=== PATIENT | male | born 1955 | race Caucasian/White ===

== ENCOUNTER 2017-10-19 06:19 | Emergency (ER) | payer BC, SELFPAY ==
[2017-10-19 06:24] VITALS: BP 146/87; PULSE 68; RESP 18; TEMP 36.7; O2SAT 96; BMI 30.1
--- NOTE | 2017-10-19 07:27 | HMH.EDALLER ---
ED Disposition Clinical Impression: Angioedema Qualifiers: Encounter type: initial encounter Qualified Code(s): T78.3XXA - Angioneurotic edema, initial encounter Disposition: Home, Self-Care Condition on Discharge: Good Instructions: DI for Skin Abscess Additional Instructions: use meds as directed Prescriptions: predniSONE [Prednisone 20mg Tab] 20 mg PO DAILY #10 tab Referrals: Felix Newell MD [Primary Care Provider] - - Critical Care Critical Care Time: No Attestation: On 10/19/17, the high probability of a clinically significant, sudden or life threatening deterioration of the following system(s) required my full and direct attention, intervention and personal management. The time I documented below is in addition to time spent performing reported procedures but includes the following listed in this critical care notation. Medical Decision Making - Medical Records Medical records reviewed: Yes: I reviewed the patient's medical records. Vital Signs: 10/19/17 06:24 Temperature 98.1 F Temperature Source Oral Pulse Rate [Right] 68 Respiratory Rate 18 Blood Pressure [Right Arm] 146/87 Blood Pressure Mean [Right Arm] 106 02 Sat by Pulse Oximetry 96 Oxygen Delivery Method Room Air Orders (Tests/Meds): ED MEDICATIONS Discontinued Medications Generic Name Dose Route Start Last Admin Trade Name Freq PRN Reason Stop Dose Admin Diphenhydramine HCl 25 mg 10/19/17 06:37 10/19/17 06:40 Benadryl 50mg/1ml Vial IV 10/19/17 06:38 25 mg ONCE ONE Administration Famotidine 20 mg 10/19/17 06:38 10/19/17 06:40 Pepcid 20mg/2ml Vial IV 10/19/17 06:39 20 mg ONCE ONE Administration Methylprednisolone Sodium Succinate 125 mg 10/19/17 06:37 10/19/17 06:39 Solu-Medrol 125mg/2ml Vial IV 10/19/17 06:38 125 mg ONCE ONE Administration - Physician Consults Physician Consulted: princess Reason -: Pt condition - Tahir Inquiry Pt receiving controlled substance: No Allergic React/Insect Bite HPI - General Chief complaint: Allergic Reaction Stated complaint: Swollen tongue Time Seen by Provider: 10/19/17 07:28 Mode of Arrival - ED Triage: Ambulatory Source of Information: Patient, Spouse, Medical Record Limitations: No Limitations - History of Present Illness HPI narrative: acute onset this am of swollen tongue with no prev episode and ho hx of abilio inhib MD complaint: allergic reaction Onset (ago): hour(s) Exposure: unknown Symptoms: tongue swelling Treatment prior to arrival: none Allergies/Adverse Reactions: Allergies Allergy/AdvReac Type Severity Reaction Status Date / Time No Known Allergies Allergy Verified 10/19/17 06:34 Previous Allergic Reaction History: none Severity: moderate - Related Data Home Medications Medication Instructions Recorded Confirmed Omeprazole [Omeprazole 40mg 40 mg PO DAILY 10/19/17 10/19/17 Capsule] Previous Rx's Medication Instructions Recorded predniSONE [Prednisone 20mg 20 mg PO DAILY #10 tab 10/19/17 Tab] [facility] History I have reviewed the patient's past medical history: Yes Medical History: Denies:: Diabetes Mellitus Type 1, Diabetes Mellitus Type 2 Other Surgeries: No: Pacemaker - *Social History Alcohol Intake: current Alcohol Intake Frequency:: holidays/special occasions only - Psychiatric History Expresses thoughts of harming self/others: None Suicide Plan Description: No Plan ROS Obtained: Yes All systems reviewed & no additional complaints - Constitutional Constitutional: Denies fever(s) - Eyes Eyes: Denies loss of vision - ENT Ears, Nose, Mouth, and Throat: Reports as per HPI, Denies difficulty swallowing, Denies mouth lesions, Denies throat swelling - Cardiovascular Cardiovascular: Denies chest pain at rest - Respiratory Respiratory: No cough - Gastrointestinal Gastrointestingal: Denies: abdominal pain, black, tarry stools - Musculoskeletal M
--- NOTE | 2017-10-19 07:34 | ED_ITS ---
ED Disposition Clinical Impression: Angioedema Qualifiers: Encounter type: initial encounter Qualified Code(s): T78.3XXA - Angioneurotic edema, initial encounter Disposition: Home, Self-Care Condition on Discharge: Good Instructions: DI for Skin Abscess Additional Instructions: use meds as directed Prescriptions: predniSONE [Prednisone 20mg Tab] 20 mg PO DAILY #10 tab Referrals: Felix Newell MD [Primary Care Provider] - - Critical Care Critical Care Time: No Attestation: On 10/19/17, the high probability of a clinically significant, sudden or life threatening deterioration of the following system(s) required my full and direct attention, intervention and personal management. The time I documented below is in addition to time spent performing reported procedures but includes the following listed in this critical care notation. Medical Decision Making - Medical Records Medical records reviewed: Yes: I reviewed the patient's medical records. Vital Signs: 10/19/17 06:24 Temperature 98.1 F Temperature Source Oral Pulse Rate [Right] 68 Respiratory Rate 18 Blood Pressure [Right Arm] 146/87 Blood Pressure Mean [Right Arm] 106 02 Sat by Pulse Oximetry 96 Oxygen Delivery Method Room Air Orders (Tests/Meds): ED MEDICATIONS Discontinued Medications Generic Name Dose Route Start Last Admin Trade Name Freq PRN Reason Stop Dose Admin Diphenhydramine HCl 25 mg 10/19/17 06:37 10/19/17 06:40 Benadryl 50mg/1ml Vial IV 10/19/17 06:38 25 mg ONCE ONE Administration Famotidine 20 mg 10/19/17 06:38 10/19/17 06:40 Pepcid 20mg/2ml Vial IV 10/19/17 06:39 20 mg ONCE ONE Administration Methylprednisolone Sodium Succinate 125 mg 10/19/17 06:37 10/19/17 06:39 Solu-Medrol 125mg/2ml Vial IV 10/19/17 06:38 125 mg ONCE ONE Administration - Physician Consults Physician Consulted: princess Reason -: Pt condition - Tahir Inquiry Pt receiving controlled substance: No Allergic React/Insect Bite HPI - General Chief complaint: Allergic Reaction Stated complaint: Swollen tongue Time Seen by Provider: 10/19/17 07:28 Mode of Arrival - ED Triage: Ambulatory Source of Information: Patient, Spouse, Medical Record Limitations: No Limitations - History of Present Illness HPI narrative: acute onset this am of swollen tongue with no prev episode and ho hx of abilio inhib MD complaint: allergic reaction Onset (ago): hour(s) Exposure: unknown Symptoms: tongue swelling Treatment prior to arrival: none Allergies/Adverse Reactions: Allergies Allergy/AdvReac Type Severity Reaction Status Date / Time No Known Allergies Allergy Verified 10/19/17 06:34 Previous Allergic Reaction History: none Severity: moderate - Related Data Home Medications Medication Instructions Recorded Confirmed Omeprazole [Omeprazole 40mg 40 mg PO DAILY 10/19/17 10/19/17 Capsule] Previous Rx's Medication Instructions Recorded predniSONE [Prednisone 20mg 20 mg PO DAILY #10 tab 10/19/17 Tab] [facility] History I have reviewed the patient's past medical history: Yes Medical History: Denies:: Diabetes Mellitus Type 1, Diabetes Me
[2017-10-19 08:17] VITALS: BP 110/86; PULSE 68; RESP 18; O2SAT 98
== END 2017-10-19 08:24 | disposition home or self-care (01) ==
PROVIDERS: Emergency Provider Family Medicine; Family Provider Family Medicine; PCP Family Medicine
DX: T78.3XXA Angioneurotic edema, initial encounter (principal); Z79.899 Other long term (current) drug therapy
CPT/HCPCS: 96374; 96375; 99282

== ENCOUNTER 2017-10-21 11:20 | Day surgery (SDC) | payer BC, SELFPAY ==
[2017-10-17 15:04] VITALS: BMI 30.8
[2017-10-21] VITALS (7 sets, daily range): BP systolic 115–138; BP diastolic 75–92; PULSE 63–90; RESP 15–18; TEMP 36.3–36.7; O2SAT 93–98
--- NOTE | 2017-10-21 12:32 | P.PN_ITS ---
[facility] Anesthesia Checklist - Patient Identification Patient Identification: Arm Band, Verbal (Name & ) - Structural Data Admitted From: Home Planned Operative Procedure/s: egd Consent for Planned Operative Procedure(s) Verified: Yes Verified Documents: Surgical Consent - Cardiovascular Assessment Heart Sounds: S1 & S2 Pulse Strength: Strong Pulse Rhythm: Regular Peripheral Edema: No - Airway Assessment C-Spine Mobility Assessed: No TMJ Mobility Assessed: Yes Dentition: Good Dentition - Neurological Assessment Level of Consciousness: Awake, Alert, Appropriate Hx Seizures: No Numbness or tingling in extremities: No - Anesthesia Plan Anesthesia Risk discussed: Yes Anesthesia Plan: Verified ASA Class: II Anesthesia Type: MAC [facility] Anesthesia HX I have reviewed the patient's past medical history: Yes Medical History: Denies:: Diabetes Mellitus Type 1, Diabetes Mellitus Type 2, Seizures Other Surgeries: No: Pacemaker
--- NOTE | 2017-10-21 13:13 | HMH.PROC ---
[facility] Procedure Note Procedure Note:: Upper Endoscopy Procedure Report: Esophagogastroduodenoscopy with cold biopsies and TTS balloon dilation Endoscopost: Akhil Carson II, MD Referring Physician: Felix Newell MD Date of Procedure: October 21, 2017 Equipment: Olympus GIF 180 standard upper endoscope Sedation: MAC sedation Indications: Mr. Shaw is a 61-year-old gentleman who is here for diagnostic upper endoscopy. The patient does report hard swallowing, frequent clearance of the throat and pharyngeal dysphagia. The patient reports some globus sensation. He does have a history of acid reflux which is controlled with lansoprazole. He reports no hoarseness. He has some mild bloating but no belching. He does have some intermittent epigastric abdominal discomfort and dyspepsia. He reports no nausea, early satiety or heartburn. He reports normal bowel function. Procedure: Prior to the procedure, a history and physical exam was performed, and patient's medications and allergies were reviewed. The risks, benefits and alternatives of the sedation and procedure were discussed with the patient. All questions were answered and informed consent was obtained. The patient was brought to the procedure room. Patient identification and proposed procedure were verified by the physician and the nurse. The patient was placed in a left lateral decubitus position and the scope was passed under direct vision. Throughout the procedure, the patient's blood pressure, pulse, and oxygen saturations were monitored continuously. The upper GI endoscopy was accomplished without difficulty. The patient tolerated the procedure well. Findings: The scope was passed directly into the upper esophagus and advanced to the third portion of the duodenum. The post bulbar duodenum and duodenal bulb were normal with normal mucosa and conniventes. The scope was withdrawn through a normal duodenal bulb and pylorus into the stomach. There was bile reflux with linear erythema of the antrum and body. There was a single gastric polyp in the body of the stomach along the greater curvature removed via cold biopsy. The remainder of the antrum, body and fundus of the stomach were grossly normal. Upon retroflexion there was a small 1-2 cm sliding hiatal hernia. 2 biopsies were taken in the antrum and along the lesser curvature for histology and/or CLOtest. The scope was then withdrawn into the esophagus. There was no evidence of reflux esophagitis or Du's. There were tertiary contractions and evidence of moderate esophageal dysmotility. The entire esophagus was dilated and there was some increased UES (upper esophageal sphincter)/cricopharyngeal resting tone (i.e. cricopharyngeal spasm) and this was dilated to 20 mm with a TTS hydrostatic balloon. The remainder of the esophageal mucosa was normal. Impression: 1. Cricopharyngeal spasm (upper esophageal sphincter spasm) status post dilation to 20 mm 2. Nonerosive GERD with mild esophageal dysmotility and very small sliding hiatal hernia 3. Bowel reflux with mild linear reactive antritis/gastritis Plan: We will discuss additional dietary measures and treatment options. I will follow up the biopsies.
== END 2017-10-21 14:15 | disposition home or self-care (01) ==
PROVIDERS: Family Provider Family Medicine; PCP Family Medicine; Visit Provider Internal Medicine Gastroenterology
PROC: 0DJ08ZZ Inspection of Upper Intestinal Tract, Via Natural or Artificial Opening Endoscopic (ICD-10-PCS; CPT 43235; principal; 2017-10-21 12:30)
DX: J39.2 Other diseases of pharynx (principal); K21.9 Gastro-esophageal reflux disease without esophagitis; K44.9 Diaphragmatic hernia without obstruction or gangrene; K29.50 Unspecified chronic gastritis without bleeding
CPT/HCPCS: 43239; 43249; C1726

== ENCOUNTER → 2018-07-31 07:47 | Outpatient (CLI) | payer OTHER, SELFPAY ==
--- NOTE | 2018-07-31 07:49 | CT_ITS ---
CT abdomen pelvis wo con CLINICAL INDICATION: ITS.REASON: GROSS HEMATURIA ORDERING PHYSICIAN: Felix Newell MD PATIENT AGE: 62 years COMPARISON: 04/09/2009 TECHNIQUE: Axial images obtained with sagittal and coronal reformats. All CT scans at the facility use one or more dose reduction, viz: automated exposure control, ma/kV adjustment per patient size (including targeted exams where dose is matched to indication, i.e. head), or iterative reconstruction technique. PROCEDURE: Oral Contrast: None IV Contrast: None . FINDINGS: Minimal atelectatic or fibrotic changes are present in the lingula. There has been prior cholecystectomy. The liver, spleen, adrenal glands, and pancreas have an unremarkable unenhanced appearance. No obstructing renal or ureteral calculi or hydronephrosis. There is a 2.3 x 1.9 cm isodensity of the right kidney and a 1 cm isodensity in the posterior aspect of the left kidney medially consistent with a renal cysts. A nonobstructing 2 mm stone is present along the lower pole the left kidney No suspicious renal mass apparent. The urinary bladder has an unremarkable appearance. No intestinal obstruction or free air. No evidence of appendicitis or diverticulitis. The prostate is mildly enlarged at 4.8 cm with coarse calcification. No acute bony anomalies. IMPRESSION: 1. No acute finding abdomen and pelvis 2. Small bilateral renal cysts with nonobstructing left renal calculus
== END ==
PROVIDERS: PCP Family Medicine; Visit Provider Family Medicine
DX: R31.0 Gross hematuria (principal)
CPT/HCPCS: 74176

== ENCOUNTER → 2019-03-09 14:31 | Outpatient (CLI) | payer OTHER, SELFPAY ==
--- NOTE | 2019-03-09 14:35 | XR_ITS ---
XR abdomen min 2V HISTORY: ITS.REASON: ABD PAIN ORDERING PHYSICIAN: Felix Newell MD PATIENT AGE: 63 years COMPARISON: None FINDINGS: Nonspecific nonobstructive bowel gas pattern. No evidence of intestinal obstruction or free air. There are surgical clips in the right upper quadrant. A small curvilinear calcification is present in the left pelvic region probably related to phlebolith having been present on previous CT scan 07/31/2018. Prostate calcifications also noted. IMPRESSION: No acute finding.
== END ==
PROVIDERS: PCP Family Medicine; Visit Provider Family Medicine
DX: R10.84 Generalized abdominal pain (principal)
CPT/HCPCS: 74019

== ENCOUNTER 2020-03-05 17:23 | Emergency (ER) | payer OTHER, SELFPAY ==
[2020-03-05 17:24] VITALS: BP 130/91; PULSE 66; RESP 18; TEMP 36.7; O2SAT 98; BMI 30.8
--- NOTE | 2020-03-05 17:38 | HMH.EDUTC ---
[facility] Disposition Clinical Impression: Puncture wound of foot Qualifiers: Encounter type: initial encounter Laterality: right Qualified Code(s): S91.331A - Puncture wound without foreign body, right foot, initial encounter Disposition: Home, Self-Care Condition on Discharge: Good Instructions: DI for Puncture Wound, Amoxicillin and Clavulanic Acid Additional Instructions: Watch area for signs of infection *Monitor closely. Follow up immediately for new or worsening symptoms including but not limited to redness, swelling, streaking from site fever or chills. Take medication as prescribed Follow up with family doctor if no improvement or any worsening of symptoms Return if needed Straight to ER if any life threatening symptoms Prescriptions: Amoxicillin/Potassium Clav [Augmentin 500mg tab] 1 tab PO BID 5 Days #10 tab Transmission Status: Pending to [facility] Referrals: eFlix Newell MD [Primary Care Provider] - As needed Time of Disposition: 17:46 Medical Decision Making - Tahir Inquiry Pt receiving controlled substance: No Tahir was queried for this patient: No Vital Signs: 03/05/20 17:24 Temperature 98.1 F Temperature Source Oral Pulse Rate [Radial] 66 Respiratory Rate 18 Blood Pressure [Right Arm] 130/91 H Blood Pressure Mean [Right Arm] 104 Blood Pressure Source [Right Arm] Automatic Cuff Blood Pressure Position [Right Arm] Sitting 02 Sat by Pulse Oximetry 98 Oxygen Delivery Method Room Air [facility] HPI - General Stated complaint: AO 0530@1400 Stepped on hook R Foot Time Seen by Provider: 03/05/20 17:38 Mode of Arrival: Ambulatory Source of Information: Spouse Limitations: No Limitations Description of Symptoms (Recalled from Triage Doc. by RN): Stepped on hook. needs tetanus shot HEENT Symptoms (Recalled from RN notes): No Resp Symptoms (Recalled from RN notes): No Skin Symptoms (Recalled from RN notes): Yes MS Symptoms (Recalled from RN notes): No Functional Status (Recalled from RN notes): wnl - History of Present Illness Provider Complaint: Patient states that a [place] he was pulling over a piece of drift wood and stuck his foot out to catch it and a hook was in the wood and stuck through his crocs into his right foot State that they was able to get it out but it has been years since he has had a tetanus and he was worried about infection - Related Data Home Medications Medication Instructions Recorded Confirmed Omeprazole [Omeprazole 40mg 40 mg PO DAILY 10/21/17 02/10/18 Capsule] Cetirizine HCl [Zyrtec] 10 mg PO DAILY 02/10/18 02/17/18 Metoclopramide HCl [Metoclopramide 5 mg PO DAILY 02/10/18 02/10/18 10mg Tablet] Previous Rx's Medication Instructions Recorded Amoxicillin/Potassium Clav 1 tab PO BID 5 Days #10 tab 03/05/20 [Augmentin 500mg tab] Allergies Allergy/AdvReac Type Severity Reaction Status Date / Time No Known Allergies Allergy Verified 02/10/18 09:45 - Worker's Comp Is this a Worker's Comp case?: No [facility] History - Hepatitis A Screen Drug use history?: No High risk sexual behaviors?: No History of sexually transmitted infection?: No Currently employed?: No Childcare worker?: No Do you have indoor plumbing?: Yes Do you have electricity?: Yes Attestation statement:: This patient has been screened for Hepatitis A risk factors. I have reviewed the patient's past medical history: Yes Medical History: Reports:: Gastroesophageal Reflux Disease(GERD) Denies:: Diabetes Mellitus Type 1, Diabetes Mellitus Type 2, Internal Pacemaker, Lung Disease, Seizures Other Surgeries: Yes: Cholecystectomy. No: Pacemaker - Social History Educational Level: Completed High School Alcohol Intake: never Alcohol Intake Frequency:: holidays/special occasions only Occupational Status: employed ROS Obtained: Yes All systems reviewed & no additional complaints, Yes Systems reviewed as appropriate
[2020-03-05 18:05] VITALS: BP 130/91; PULSE 66; RESP 18; TEMP 36.7; O2SAT 98
== END 2020-03-05 18:06 | disposition home or self-care (01) ==
PROVIDERS: Emergency Provider Nurse Practitioner; PCP Family Medicine
DX: S91.331A Puncture wound without foreign body, right foot, initial encounter (principal); W22.8XXA Striking against or struck by other objects, initial encounter; Y92.89 Other specified places as the place of occurrence of the external cause; K21.9 Gastro-esophageal reflux disease without esophagitis; Z23 Encounter for immunization; Z90.49 Acquired absence of other specified parts of digestive tract
CPT/HCPCS: 90471; 90714; 99201

== ENCOUNTER → 2020-10-03 15:38 | Outpatient (CLI) | payer OTHER, SELFPAY ==
[2020-10-03 16:17] LABS: Basophils # 0.1 K/mm3 (0-0.2); Basophils % 1.1 % (0.1-2.0); Eosinophils # 0.3 K/mm3 (0.0-0.4); Eosinophils % 3.3 % (0.1-12.0); Hematocrit 51.8 % (42.0-52.0); Hemoglobin 17.2 g/dL (14.1-18.0); Lymphocytes # 2.7 K/mm3 (0.7-4.5); Mean Corpuscular HGB Conc 33.2 g/dL (31.8-35.4); Mean Corpuscular Hemoglobin 30.6 pg (27.0-31.2); Mean Corpuscular Volume 92.1 fl (80-94); Mean Platelet Volume 7.1 fl (7.4-10.4); Monocytes # 0.6 K/mm3 (0.1-1.0); Monocytes % 7.7 % (1.7-9.3); Neutrophils # 4.6 K/mm3 (1.8-7.8); Neutrophils % 54.9 % (37.0-80.0); Platelet Count 285 K/mm3 (142-424); Red Blood Count 5.63 M/mm3 (4.60-6.20); Red Cell Distribution Width 13.4 % (11.5-17.5); White Blood Count 8.3 K/mm3 (4.8-10.8)
[2020-10-05 10:14] LABS: Covid-19 Nasal PCR Sendout P&C Negative
== END ==
PROVIDERS: PCP Family Medicine; Visit Provider Family Medicine
DX: Z03.818 Encounter for observation for suspected exposure to other biological agents ruled out (principal)
CPT/HCPCS: 36415; 85025; U0004

== ENCOUNTER → 2020-10-28 09:40 | Outpatient (CLI) | payer OTHER, SELFPAY ==
[2020-10-28 10:25] VITALS: PULSE 73; PULSE 78
== END ==
PROVIDERS: PCP Family Medicine; Visit Provider Family Medicine
DX: R06.02 Shortness of breath (principal); R06.2 Wheezing; Z87.891 Personal history of nicotine dependence
CPT/HCPCS: 94060; 94640

== ENCOUNTER → 2020-11-29 09:09 | Outpatient (CLI) | payer OTHER, SELFPAY | PROVIDERS: PCP Family Medicine; Visit Provider Family Medicine | DX: Z20.822 Contact with and (suspected) exposure to COVID-19 (principal) | CPT/HCPCS: U0003 ==

== ENCOUNTER → 2021-01-26 09:10 | Outpatient (POV) | payer OTHER, SELFPAY | PROVIDERS: Visit Provider Audiologist | DX: Z00.00 Encounter for general adult medical examination without abnormal findings (principal) ==

== ENCOUNTER → 2021-07-10 09:46 | Outpatient (CLI) | payer OTHER, SELFPAY ==
--- NOTE | 2021-07-10 09:50 | XR_ITS ---
PROCEDURE: XR LUMBAR SPINE MIN 4V CLINICAL INDICATION: ACUTE LEFT SIDED LOW BACK PAIN COMPARISON: No exams were available for comparison FINDINGS: Normal alignment. No acute fracture or dislocation. Small anterior spurs. Degenerative disc disease lower thoracic spine and at L5-S1. Incidental vascular calcification noted. Surgical clips right upper quadrant. Unremarkable SI joints. Other findings:None. IMPRESSION: Degenerative changes Dictated by: Cody Kern MD 07/10/2021 18:14 Cody Kern MD in [place] 07/10/2021 18:14
== END ==
PROVIDERS: PCP Family Medicine; Visit Provider Family Medicine
DX: M54.50 Low back pain, unspecified (principal)
CPT/HCPCS: 72110

== ENCOUNTER → 2021-10-03 11:48 | Outpatient (CLI) | payer OTHER, SELFPAY | PROVIDERS: PCP Family Medicine; Visit Provider Nurse Practitioner | DX: Z20.822 Contact with and (suspected) exposure to COVID-19 (principal) | CPT/HCPCS: C9803; U0003; U0005 ==

== ENCOUNTER → 2021-10-13 14:06 | Outpatient (CLI) | payer OTHER, SELFPAY ==
--- NOTE | 2021-10-13 14:09 | CT_ITS ---
FINAL REPORT CLINICAL HISTORY: Hx of tobacco use FINDINGS: Low-Dose Chest CT CTDI vol (mGy): 2.90 DLP (mGy-cm): 98.99 Axial images were obtained from the lung apex to the mid abdomen by computed tomography. Low-dose protocol was utilized. FINDINGS: CHEST: There is no axillary adenopathy. There is no hilar or mediastinal adenopathy. The heart is proper size. There is evidence of prior granulomatous disease. The lungs are otherwise clear. There is no pericardial or pleural effusion. Limited images of the upper abdomen are unremarkable. Lung window images demonstrate no suspicious infiltrate or nodule. IMPRESSION: Lung RADS category 1. Recommend 12 month follow-up low-dose chest CT. Reviewed, Interpreted and Dictated by Nikki Ham MD Transcribed by Leticia Phillips Authenticated by Nikki Ham MD on 10/13/2021 03:51:57 PM [facility]
== END ==
PROVIDERS: PCP Family Medicine; Visit Provider Family Medicine
DX: Z87.891 Personal history of nicotine dependence (principal); Z12.2 Encounter for screening for malignant neoplasm of respiratory organs
CPT/HCPCS: 71271

== ENCOUNTER → 2021-10-19 10:07 | Outpatient (CLI) | payer OTHER, SELFPAY | PROVIDERS: PCP Family Medicine; Visit Provider Nurse Practitioner | DX: Z20.822 Contact with and (suspected) exposure to COVID-19 (principal) | CPT/HCPCS: C9803; U0003; U0005 ==

== ENCOUNTER → 2021-12-04 08:46 | Outpatient (POV) | payer OTHER, SELFPAY ==
[2021-12-04 09:20] VITALS: BP 152/98; PULSE 94; RESP 18; TEMP 36.7; O2SAT 94; BMI 33.0
--- NOTE | 2021-12-09 21:34 | HMH.PMCON ---
Assessment and Plan (1) Headache Status: Acute Category: Medical Code(s): R51.9 - Headache, unspecified I discussed with the patient that I will prescribe tizanidine 2 mg to be taken at bedtime as needed for the headaches. I believe that the headaches are associated with myofascial pain as well as possibly cervical facet arthropathy and spondylosis. For now we will see if the pain subsides with the muscle relaxer. Otherwise, we can consider diagnostic cervical facet joint/medial branch block injections at C2-C4 bilaterally under fluoroscopy #1. Tahir and prior drug screens were reviewed and appropriate. (2) Myofascial pain Status: Acute Category: Medical Code(s): M79.18 - Myalgia, other site (3) Facet arthropathy, cervical Status: Acute Category: Medical Code(s): M47.812 - Spondylosis without myelopathy or radiculopathy, cervical region (4) Cervical spondylosis Status: Acute Category: Medical Code(s): M47.812 - Spondylosis without myelopathy or radiculopathy, cervical region HPI - Data of Consult Patient: new to practice Requesting Physician: Britany Davalos MD - Consult Narrative Reason for consult: Headaches History of present illness: Mr. Shaw is a 66 year old male who presents for initial consultation for his right-sided headache. He states that the pain started a few months ago Inciting event particular trauma falls or injury to precipitate the pain. He states that the pain has persisted then. He states that he only experiences the pain at night and it wakes him up from sleep. He states that he experiences pain above the right side of his ear into the temporal region on the right. He denies any sensitivity to bright lights or loud sounds. He denies any eye tearing associated with his headaches. He does note occasional neck stiffness and tightness especially on the right side. He does not experience any headaches on the left side. He rates his pain currently out of 10. However, he states that the pain is very debilitating when he experiences the headaches at night. He did not experience any headaches during the day. He has tried [id number] Tylenol and ibuprofen with very minimal pain relief. CC: Britany Davalos MD [facility] History Medical History: Reports:: Gastroesophageal Reflux Disease(GERD) Denies:: Diabetes Mellitus Type 1, Diabetes Mellitus Type 2, Internal Pacemaker, Lung Disease, Seizures *Have you ever received a pneumonia vaccine?: Yes *Have you received a flu vaccine this season?: Yes Other Surgeries: Yes: Cholecystectomy. No: Pacemaker - *Social History Smoking Status: Unknown if ever smoked Alcohol Intake: never Alcohol Intake Frequency:: holidays/special occasions only *Occupational Status:: retired *Travel in the last 8 weeks: None Family Hx:: No significant family history Review of Systems - Review of Systems Review of systems:: pertinent systems reviewed and negative unless documented below Meds Home Medications Medication Instructions Recorded Confirmed Type Lansoprazole [Prevacid] 15 mg PO DAILY 12/04/21 12/04/21 History Tizanidine HCl [Tizanidine HCl 2 mg PO HS #30 tab 12/04/21 Rx 2mg] Allergies Allergy/AdvReac Type Severity Reaction Status Date / Time No Known Allergies Allergy Verified 02/10/18 09:45 Objective Vital signs: Temp Pulse Resp BP Pulse Ox 98.0 F 94 H 18 152/98 H 94 L 12/04/21 09:20 12/04/21 09:20 12/04/21 09:20 12/04/21 09:20 12/04/21 09:20 Narrative: General: Alert and oriented x3, no acute distress, pleasant and cooperative Lungs: Resps E/U, symmetric chest expansion Eyes: PERRL Musculoskeletal: No tenderness to palpation over the bilateral occipital nerve distribution. Tenderness to palpation over the cervical facet joints. Deep tendon reflexes were normal in bilateral upper and lower extremities. Motor exam was grossly intact in the bilateral upper and lower extremities. Neurologic
== END ==
PROVIDERS: Visit Provider Anesthesiology Pain Medicine
DX: R51.9 Headache, unspecified (principal); M79.18 Myalgia, other site; M47.812 Spondylosis without myelopathy or radiculopathy, cervical region
CPT/HCPCS: 99202; G0463

== ENCOUNTER → 2023-07-31 17:06 | Outpatient (CLI) | payer MEDICARE, OTHER, SELFPAY ==
--- NOTE | 2023-07-31 17:19 | XR_ITS ---
PROCEDURE INFORMATION: Exam: XR Left Knee Exam date and time: 07/31/2023 5:13 PM Age: 67 years old Clinical indication: Injury or trauma; Fall; Blunt trauma; Knee; Left; Additional info: Fall, left knee pain and tenderness at medial patella TECHNIQUE: Imaging protocol: Radiologic exam of the left knee. Views: 3 views. COMPARISON: No relevant prior studies available. FINDINGS: Bones/joints: No fracture or dislocation. Minimal tricompartmental degenerative joint disease. Soft tissues: Normal. Vasculature: Mild atherosclerotic disease. IMPRESSION: No fracture or dislocation.
--- NOTE | 2023-07-31 17:21 | XR_ITS ---
PROCEDURE INFORMATION: Exam: XR Left Foot Exam date and time: 07/31/2023 5:15 PM Age: 67 years old Clinical indication: Injury or trauma; Fall; Blunt trauma; Foot; Left TECHNIQUE: Imaging protocol: Radiologic exam of the left foot. Views: 3 or more views. COMPARISON: CR XR KNEE LT 3V 07/31/2023 5:13 PM FINDINGS: Bones/joints: No fracture or dislocation. Minimal degenerative change at the 1st metatarsophalangeal joint. Small posterior and plantar surface calcaneal enthesophytes. Soft tissues: Normal. IMPRESSION: No fracture or dislocation.
== END ==
PROVIDERS: PCP Family Medicine; Visit Provider Family Medicine
DX: S89.92XA Unspecified injury of left lower leg, initial encounter (principal); W19.XXXA Unspecified fall, initial encounter
CPT/HCPCS: 73562; 73630

== ENCOUNTER 2024-10-05 09:12 | Emergency (ER) | payer MEDICARE, OTHER, SELFPAY ==
[2024-10-05 09:40] VITALS: BP 142/91; PULSE 90; RESP 17; TEMP 36.7; O2SAT 95; BMI 32.6
--- NOTE | 2024-10-05 09:54 | EXP.UTC ---
Discharge Plan Disposition Patient Disposition: Home, Self-Care Condition: Good Prescriptions Prescriptions: New azithromycin [Zithromax Z-Rocky] 250 mg tablet See Rx Instructions .ROUTE .COMPLEX 5 Days Qty: 6 0RF Rx Instructions: For 250 mg dose pack: take 500 mg today (day 1), then 250 mg for 4 days (days 2-5) benzonatate 100 mg capsule 100 mg PO TID PRN (Reason: cough) Qty: 30 0RF methylprednisolone [Medrol (Rocky)] 4 mg tablets,dose pack See Rx Instructions .Route .COMPLEX 6 Days Qty: 21 0RF Rx Instructions: taper pack; No Action losartan 50 mg tablet 50 mg PO DAILY oxybutynin chloride 10 mg tablet extended release 24hr 10 mg PO DAILY pravastatin 40 mg tablet 40 mg PO DAILY tamsulosin 0.4 mg capsule 0.4 mg PO DAILY omeprazole 20 mg capsule,delayed release(DR/EC) 20 mg PO DAILY Referrals Follow up/Referrals: Felix Newell MD [Primary Care Provider] - See instructions Activity Restrictions/Add. Instructions Additional Instructions/Restrictions: Start antibiotic today. Be sure to complete entire prescription even if feeling better Monitor temp. Tylenol every 4 hours as needed and / or ibuprofen every 6 hours as needed ( As long as your primary care physician has told you that it ok to take both. For fever/aches/pains ER if no less than 101 despite Tylenol or Motrin Humidifier/vaporizer or hot steamy shower *Tessalon Perles will not cause drowsiness but use at bedtime to help stop cough so that you may get some rest. *Start steroid tomorrow. Helps with inflammation therefore, cough and wheezing. Follow directions on the package. Reviewed side effects. Patient reports taking them before. Follow up IMMEDIATELY for new or worsening of symptoms OR no noticeable improvement over the next 48-72 hours. 911 immediately for any life threatening symptoms such as chest pain or difficulty breathing Clinical Impressions Clinical Impression: Bronchitis Sinusitis Qualifiers: Sinusitis location: unspecified location Chronicity: unspecified Qualified Code(s): J32.9 - Chronic sinusitis, unspecified Instructions Patient Instructions: Sinusitis, Acute Bronchitis, DI for Sinusitis Print Language Print Language: Cypriot Discharge ED Provider: Ilene Lyons [facility] [place] HPI General Stated complaint: cough, congestion Mode of Arrival: Ambulatory Source of Information: Patient Limitations: No Limitations Time Seen by Provider: 10/05/24 09:54 Description of Symptoms (Recalled from Triage Doc. by RN): PATIENT C/O DRY COUGH AND CONGESTION X 4 DAYS HEENT Symptoms (Recalled from RN notes): No Resp Symptoms (Recalled from RN notes): Yes Skin Symptoms (Recalled from RN notes): No MS Symptoms (Recalled from RN notes): No Functional Status (Recalled from RN notes): WNL History of Present Illness Provider Complaint: Patient states that he has been having sinus congestion and drainage, dry cough and headache that is worse over the last 4 days States that the cough is worse when he lays down and keeping him up at night States today it was still bothering him so he came in to get checked Related Data Home Medications ?Medication ?Instructions ?Recorded ?Confirmed losartan 50 mg tablet 50 mg PO DAILY 10/05/24 10/05/24 omeprazole 20 mg capsule,delayed 20 mg PO DAILY 10/05/24 10/05/24 release oxybutynin chloride 10 mg 10 mg PO DAILY 10/05/24 10/05/24 tablet,extended release 24 hr pravastatin 40 mg tablet 40 mg PO DAILY 10/05/24 10/05/24 tamsulosin 0.4 mg capsule 0.4 mg PO DAILY 10/05/24 10/05/24 Previous Rx's ?Medication ?Instructions ?Recorded azithromycin 250 mg tablet See Rx Instructions PO .COMPLEX 5 10/05/24 (Zithromax Z-Rocky) days #6 tabs benzonatate 100 mg capsule 100 mg PO TID PRN cough #30 caps 10/05/24 methylprednisolone 4 mg tablets in See Rx Instructions .Route 10/05/24 a dose pack (Medrol (Rocky)) .COMPLEX 6 days #21 tabs Allergies Allergy/AdvReac Type Severity Reaction Status Date / Time No Known Allergies Allergy Verified 02/10/18 09:45 Worker's Comp Is this a Worker's Comp case?: No [facility] Disclaimer: The information contained in this section may have been updated after the patient was seen, as this information can be updated by other users. Medical History (Updated 10/05/24 @ 10:10 by Ilene Lyons APRN) Hyperlipidemia Hypertension Social History Smoking Status: Unknown if ever smoked alcohol intake: never current occupational status: retired Travel in the last 8 weeks: None caffeine: Yes Have you lived/traveled outside US in past 30 days?: No Contact w/someone who lives/traveled outside US past 30 days?: No Exposure to someone with infectious disease in past 14 days?: No Do you have a fever (greater than 100.4 F or 38 C)?: No Have you tested positive for COVID-19: No Exposed to someone with COVID-19 in past 14 days?: No Do you have a sore throat?: No Do you have a cough?: Yes Do you have any weakness?: No Do you have any diarrhea?: No Are you experiencing any unusual bleeding?: No Do you have any muscle aches/pain?: No Do you have any abdominal pain?: No Are you experiencing loss of taste or smell?: No ROS Obtained: Yes All systems reviewed & no additional complaints except as documented and Yes Systems reviewed as appropriate & no additional complaints except as documented Constitutional Constitutional: Reports system reviewed and no additional complaints, except as documented, Reports as per HPI and Reports headache(s) ENT Ears, Nose, Mouth, and Throat: Reports system reviewed and no additional complaints, except as documented, Reports as per HPI, Reports headache(s), Reports nasal congestion and Reports nasal discharge Cardiovascular Cardiovascular: Reports system reviewed and no additional complaints, except as documented and Reports as per HPI Respiratory Respiratory: Reports system reviewed and no additional complaints, except as documented, Reports as per HPI, Reports chest congestion and Reports cough Gastrointestinal Gastrointestingal: Reports system reviewed and no additional complaints, except as documented and as per HPI Neurologic Neurologic: Reports headache(s) Physical Exam General General appearance: alert and in no apparent distress ENT ENT exam: Present mucous membranes moist Expanded ENT Exam Nose exam: Present sinus tenderness Throat exam: Present other (Pharyngeal erythema noted with PND) Respiratory Respiratory exam: Present normal lung sounds bilaterally; Absent respiratory distress or wheezes Cardiovascular Cardiovascular exam: Present regular rate, normal rhythm and normal heart sounds Abdominal Exam Abdominal exam: Present soft and normal bowel sounds; Absent distention or tenderness Neurological Exam Neurological exam: Present alert, oriented X3 and normal gait Medical Decision Making Medical Records Screening: Per USPSTF and CDC recommendations, given the prevalence of disease in our region, it is our hospital?s policy to screen for HIV and viral Hepatitis for all patients aged 18 and over and those with ongoing risk factors. Tahir Inquiry Pt receiving controlled substance: No Tahir was queried for this patient: No Vital Signs: 10/05/24 09:40 Temperature 98.1 F Temperature Source Oral Pulse Rate [Left Brachial] 90 Respiratory Rate 17 Blood Pressure [Left Arm] 142/91 H Blood Pressure Mean [Left Arm] 108 Blood Pressure Source [Left Arm] Automatic Cuff Blood Pressure Position [Left Arm] Sitting 02 Sat by Pulse Oximetry 95 Oxygen Delivery Method Room Air
[2024-10-05] MEDS: METHYLPREDNISOLONE SOD SUCC 125MG VIAL 125 MG IM (10:14)
[2024-10-05 10:15] VITALS: BP 142/91; PULSE 90; RESP 17; TEMP 36.7; O2SAT 95
== END 2024-10-05 10:19 | disposition home or self-care (01) ==
PROVIDERS: Emergency Provider Nurse Practitioner; PCP Family Medicine
DX: J32.9 Chronic sinusitis, unspecified (principal); J40 Bronchitis, not specified as acute or chronic; R51.9 Headache, unspecified; R05.9 Cough, unspecified; R09.81 Nasal congestion
CPT/HCPCS: 96372; 99212; G0381; J2919

== ENCOUNTER 2024-10-13 01:51 | Emergency (ER) | payer MEDICARE, OTHER, SELFPAY ==
[2024-10-13 01:53] VITALS: BP 116/93; PULSE 70; RESP 16; TEMP 36.7; O2SAT 96; BMI 34.0
--- NOTE | 2024-10-13 02:02 | HMH.EDGENADL ---
Discharge Plan Disposition Chief Complaint: Fall Prescriptions Prescriptions: No Action losartan 50 mg tablet 50 mg PO DAILY oxybutynin chloride 10 mg tablet extended release 24hr 10 mg PO DAILY pravastatin 40 mg tablet 40 mg PO DAILY tamsulosin 0.4 mg capsule 0.4 mg PO DAILY omeprazole 20 mg capsule,delayed release(DR/EC) 20 mg PO DAILY azithromycin [Zithromax Z-Rocky] 250 mg tablet See Rx Instructions .ROUTE .COMPLEX 5 Days Qty: 6 0RF Rx Instructions: For 250 mg dose pack: take 500 mg today (day 1), then 250 mg for 4 days (days 2-5) benzonatate 100 mg capsule 100 mg PO TID PRN (Reason: cough) Qty: 30 0RF methylprednisolone [Medrol (Rocky)] 4 mg tablets,dose pack See Rx Instructions .Route .COMPLEX 6 Days Qty: 21 0RF Rx Instructions: taper pack; Referrals Follow up/Referrals: Felix Newell MD [Primary Care Provider] - See instructions Print Language Print Language: Mozambican Discharge ED Provider: Joao Carlson General Adult HPI General Chief complaint: Fall Stated complaint: fall 10/13 0100, face injury Time Seen by Provider: 10/13/24 01:55 History of Present Illness HPI narrative: 68-year-old male with history of chronic cough related syncope presents for syncope with related fall. He was sitting on the toilet and coughed repeatedly when he passed out and fell forward striking the ground. He reports he had some bleeding from his nose. He reports that he has been worked up repeatedly for the syncope and nobody is sure exactly what is going on. He denies vision changes headache nausea vomiting or any other symptoms. The vomit about an hour ago. He has a small laceration on his nose. He denies any neck pain chest pain abdominal pain shortness of breath. Denies any other injuries. Related Data Home Medications ?Medication ?Instructions ?Recorded ?Confirmed losartan 50 mg tablet 50 mg PO DAILY 10/05/24 10/05/24 omeprazole 20 mg capsule,delayed 20 mg PO DAILY 10/05/24 10/05/24 release oxybutynin chloride 10 mg 10 mg PO DAILY 10/05/24 10/05/24 tablet,extended release 24 hr pravastatin 40 mg tablet 40 mg PO DAILY 10/05/24 10/05/24 tamsulosin 0.4 mg capsule 0.4 mg PO DAILY 10/05/24 10/05/24 Previous Rx's ?Medication ?Instructions ?Recorded azithromycin 250 mg tablet See Rx Instructions PO .COMPLEX 5 10/05/24 (Zithromax Z-Rocky) days #6 tabs benzonatate 100 mg capsule 100 mg PO TID PRN cough #30 caps 10/05/24 methylprednisolone 4 mg tablets in See Rx Instructions .Route 10/05/24 a dose pack (Medrol (Rocky)) .COMPLEX 6 days #21 tabs Allergies Allergy/AdvReac Type Severity Reaction Status Date / Time No Known Allergies Allergy Verified 02/10/18 09:45 [facility] Disclaimer: The information contained in this section may have been updated after the patient was seen, as this information can be updated by other users. Medical History (Updated 10/05/24 @ 10:10 by Ilene Lyons APRN) Hyperlipidemia Hypertension Social History Smoking Status: Former smoker alcohol intake: never current occupational status: retired Travel in the last 8 weeks: None caffeine: Yes Have you lived/traveled outside US in past 30 days?: No Contact w/someone who lives/traveled outside US past 30 days?: No Exposure to someone with infectious disease in past 14 days?: No Do you have a fever (greater than 100.4 F or 38 C)?: No Have you tested positive for COVID-19: No Exposed to someone with COVID-19 in past 14 days?: No Do you have a sore throat?: No Do you have a cough?: Yes Do you have any weakness?: No Do you have any diarrhea?: No Are you experiencing any unusual bleeding?: No Do you have any muscle aches/pain?: No Do you have any abdominal pain?: No Are you experiencing loss of taste or smell?: No Other Medical History Have you received the Flu Vaccine for this season: Yes Have you received the Pneumonia Vaccine: Yes ROS Obtained: Yes All systems reviewed & no additional complaints except as documented Physical Exam General General appearance: alert and in no apparent distress Head Head exam: normocephalic Eye Eye exam: Present normal appearance, PERRL and EOMI ENT ENT exam: Present normal oropharynx, normal external ear exam and other (Nose is erythematous and mildly swollen, there is an abrasion on the bridge of the nose, there is a small laceration to the 1 o'clock position of the right nare, hemostatic, no nasal septal hematoma) Neck Neck exam: Present normal inspection and full ROM; Absent tenderness Chest Chest inspection: Present normal inspection and symmetric chest wall rise; Absent tenderness Respiratory Respiratory exam: Present normal lung sounds bilaterally; Absent respiratory distress Cardiovascular Cardiovascular exam: Present regular rate and normal rhythm Abdominal Exam Abdominal exam: Present soft; Absent distention, tenderness or guarding Extremities Exam Extremities exam: Present normal inspection; Absent edema or joint swelling Back Exam Back exam: Present normal inspection; Absent tenderness Comment: No midline CT or L-spine tenderness Neurological Exam Neurological exam: Present alert and oriented X3; Absent motor sensory deficit Psychiatric Psychiatric exam: Present normal affect and normal mood Skin Skin exam: Present warm, dry and normal color Lymphatic Lymphatic Findings: no adenopathy Medical Decision Making Medical Records Medical records reviewed: Yes I reviewed the patient's medical records. Screening: Per USPSTF and CDC recommendations, given the prevalence of disease in our region, it is our hospital?s policy to screen for HIV and viral Hepatitis for all patients aged 18 and over and those with ongoing risk factors. Tahir Inquiry Pt receiving controlled substance: No Tahir was queried for this patient: No Vital Signs: 10/13/24 01:53 Temperature 98.1 F Temperature Source Oral Pulse Rate [Right] 70 Respiratory Rate 16 Blood Pressure [Right Arm] 116/93 H Blood Pressure Mean [Right Arm] 100 02 Sat by Pulse Oximetry 96 Oxygen Delivery Method Room Air Lab Data Lab results reviewed: Yes I reviewed the patient's lab results. Orders (Tests/Meds): ED MEDICATIONS Discontinued Medications Generic Name Dose Route Start Last Admin Trade Name Freq PRN Reason Stop Dose Admin Lidocaine HCl 5 ml 10/13/24 02:12 Lidocaine 1% 10ml Mdv IJ 10/13/24 02:13 ONCE ONE ORDERS Category Date Time Status CT head/brain wo con Stat Cat Scan 10/13/24 02:11 Ordered Medical Decision Narrative: 68-year-old male with history of chronic cough related syncope presents after a syncopal episode related to his coughing. He is not concerned about the syncope, he is concerned about his nose. History was obtained via interactive discussion with patient family chart review. On arrival, patient is [afebrile, hemodynamically stable, satting appropriately, alert, oriented x4, GCS 15], moving all extremities spontaneously. Full physical exam performed and significant for findings as documented above, small laceration of the nose, small abrasion of the nose, no nasal septal hematoma, no midline C-spine tenderness Differential includes but is not limited to intracranial trauma intrathoracic trauma intra-abdominal trauma spine trauma extremity trauma facial trauma. Workup initiated including EKG, CT head Noncon. Patient is Nexus criteria negative for C-spine. Imaging independently interpreted by me and significant for no evidence of intracranial bleeding or trauma.. See radiology read for full review of final results. EKG independently interpreted by me and significant for normal sinus rhythm without evidence of arrhythmia or ischemic changes. Interpreted at 2:16 AM. Trauma imaging and blood work and syncope workup was considered, but deemed unnecessary due to history and exam. Given patient history, exam and workup, patient's presentation most likely represents nasal laceration secondary to fall from patient's chronic cough related syncope. Patient may have a nasal bone fracture, but it does not appear significantly malaligned and patient is able to breathe spontaneously through his nose without difficulty at this time. The laceration was repaired at bedside by me and patient was given instructions regarding symptomatic care wound care and return precautions. Procedures Risk/Benefits of Procedure(s) Were Explained: Yes Laceration Laceration 1: Site: other (Right nare) Size (cm): 1 Description: linear Depth: simple, single layer and involves subcutaneous layer Pre-repair: wound explored, irrigated extensively and deep structures intact Skin layer closed with: other (Fast gut) Size (cm): 5-0 Number of sutures: 2 Technique: simple, interrupted Critical Care Critical Care Time Critical Care Time: No
--- NOTE | 2024-10-13 02:11 | CT_ITS ---
PROCEDURE INFORMATION: Exam: CT Head Without Contrast Exam date and time: 10/13/2024 2:28 AM Age: 68 years old Clinical indication: Injury or trauma; Fall; Blunt trauma (contusions or hematomas); Additional info: Syncope then fall on face TECHNIQUE: Imaging protocol: Computed tomography of the head without contrast. Radiation optimization: All CT scans at this facility use at least one of these dose optimization techniques: automated exposure control; mA and/or kV adjustment per patient size (includes targeted exams where dose is matched to clinical indication); or iterative reconstruction. COMPARISON: No relevant prior studies available. FINDINGS: Brain: No evidence for acute intracranial hemorrhage, midline shift, or mass effect. No convincing evidence for acute transcortical infarct. Cerebral ventricles: No ventriculomegaly. Paranasal sinuses: Visualized sinuses are unremarkable. No fluid levels. Polypoid disease versus retention cyst in the right maxillary sinus. Polypoid disease versus retention cyst in the left maxillary sinus. Mastoid air cells: Visualized mastoid air cells are well aerated. Teeth: There is dental amalgam which causes streak artifact and mildly limits evaluation of the oral cavity. Bones: See Soft tissues finding. Soft tissues: There is soft tissue swelling over the right frontal calvarium without underlying injury identified. IMPRESSION: No evidence for acute intracranial hemorrhage, midline shift, or mass effect. No convincing evidence for acute transcortical infarct.
--- NOTE | 2024-10-13 02:15 | ECG_ITS ---
APPROVED REPORT Exam: Resting ECG HR:76 bpm ECG Measurements Heart Rate 76 AXES NJ 157 P 67 QRSd 100 QRS 75 QT 366 T 81 QTc 397 Conclusion SINUS RHYTHM NORMAL ECG UNCONFIRMED REPORT Electronically signed by : NICK SLAUGHTER, 10/16/2024 05:38:09
[2024-10-13] MEDS: LIDOCAINE 1% 10ML MDV 5 ML IJ (02:28)
[2024-10-13 02:35] VITALS: BP 130/78; PULSE 83; RESP 18; TEMP 36.6; O2SAT 96
== END 2024-10-13 02:38 | disposition home or self-care (01) ==
PROVIDERS: Emergency Provider Emergency Medicine; PCP Family Medicine
DX: S01.21XA Laceration without foreign body of nose, initial encounter (principal); S02.2XXA Fracture of nasal bones, initial encounter for closed fracture; R05.9 Cough, unspecified; R55 Syncope and collapse; R04.0 Epistaxis; R11.10 Vomiting, unspecified; W18.12XA Fall from or off toilet with subsequent striking against object, initial encounter; Y93.89 Activity, other specified; Y92.002 Bathroom of unspecified non-institutional (private) residence as the place of occurrence of the external cause
CPT/HCPCS: 70450; 93005; 99284

== ENCOUNTER 2024-10-29 08:22 | Outpatient (CLI) | payer MEDICARE, OTHER, SELFPAY ==
--- NOTE | 2024-10-29 | CA_ITS ---
FINAL REPORT TECHNIQUE: Color Doppler, duplex Doppler and cerda scale sonography of the bilateral neck arterial vasculature was performed. Velocities were measured in the carotid arteries. Stenosis evaluation based on the validated velocity criteria. CLINICAL HISTORY: Syncope with coughing, HTN, Ex-smoker COMPARISON: None FINDINGS: The peak systolic velocity of the right common carotid artery is 86 cm/s. The peak systolic velocity of the right internal carotid artery is 71 cm/s and end diastolic velocity 21 cm/s. The ICA/CCA ratio is 1.07. A minimal amount of plaque is present. The right external carotid artery is patent. The right vertebral artery is patent with antegrade flow. The peak systolic velocity of the left common carotid artery is 83 cm/s. The peak systolic velocity of the left internal carotid artery is 67 cm/s and end diastolic velocity 23 cm/s. The ICA/CCA ratio is 0.80. A minimal amount of plaque is present. The left external carotid artery is patent.The left vertebral artery is patent with antegrade flow. IMPRESSION: Less than 50% bilateral carotid stenoses. Bilateral patent vertebral arteries with antegrade flow. If indicated, CTA or MRA could further evaluate. Reviewed, Interpreted and Dictated by Jose G Nino MD Transcribed by Nani Lincoln Authenticated and [facility]
== END 2024-10-29 23:59 | disposition home or self-care (01) ==
LOC: RT 08:24
PROVIDERS: PCP Family Medicine; Visit Provider Family Medicine
DX: R09.89 Other specified symptoms and signs involving the circulatory and respiratory systems (principal); R55 Syncope and collapse
CPT/HCPCS: 93880

== ENCOUNTER 2025-01-07 07:25 | Outpatient (CLI) | payer MEDICARE, OTHER, SELFPAY ==
--- NOTE | 2025-01-07 08:42 | CT_ITS ---
FINAL REPORT CLINICAL HISTORY: HX OF NICOTINE previous smoker 1 10/08 ppd x 35 years , quit 16 years ago COMPARISON: 10/13/2021 FINDINGS: CT CHEST LOW DOSE SCREENING HISTORY: Screening exam for lung cancer. 69-year-old male, previous smoker who quit 16 years ago, [id number] history. DOSE: CTDI vol: 2.90 mGy, DLP: 103.94 mGy*cm TECHNIQUE: Axial CT without IV contrast administration using low dose protocol. This study was performed with techniques to keep radiation doses as low as reasonably achievable, (ALARA). Individualized dose reduction techniques using automated exposure control or adjustment of mA and/or kV according to the patient's size were employed. No acute lung disease is present. No pulmonary lesions are seen suspicious for neoplasm. No pleural or pericardial effusion is seen. No adenopathy or mass lesion is present. IMPRESSION: No evidence of lung cancer LUNG RADS CATEGORY 1 RECOMMENDATION: 12 month LDCT follow up Reviewed, Interpreted and Dictated by Kasie Salazar MD Transcribed by Oralia Bhandari Authenticated and [facility]
[2025-01-07] MEDS: ALBUTEROL 0.083% 2.5 MG/3 ML NEB IH (08:50)
== END 2025-01-07 23:59 | disposition home or self-care (01) ==
LOC: RT 07:26
PROVIDERS: PCP Family Medicine; Visit Provider Family Medicine
DX: J44.1 Chronic obstructive pulmonary disease with (acute) exacerbation (principal); R06.2 Wheezing; R05.4 Cough syncope; R55 Syncope and collapse; Z87.891 Personal history of nicotine dependence
CPT/HCPCS: 71271; 94060; 94726; 94729; J7613

== ENCOUNTER 2025-03-02 14:41 | Outpatient (CLI) | payer MEDICARE, OTHER, SELFPAY ==
--- OUTSIDE RECORDS SUMMARY | 2025-03-02 14:44 | XMS_ITS | Data Portability ---
Author Organization [place] - [facility] GABY Kim ADMIN Address [address] [place] [address] Care Team Providers Care Lusterer Name Role Phone KAYLA FELDMAN Urologist Unavailable Assessment Encounter Date Assessment Date Assessment LastModified by Organization Details LastModified Time 09/02/2023 09/02/2023 Patient may increase his dose up to 25 units. He will let me know how he does over the next few weeks. If I do not hear from him he will need a follow-up appointment in the [facility] office in 4-6 mo. [email or web address] Not available 09/03/2023 13:28:17 Plan of Treatment Reminders Order Date Submit Date Provider Last Modified By Organization Details Last Modified Time Details Appointments OV EST 15 2025 09:30A M Kayla Feldman NP Not available Not available Not available Lab PSA, serum or plasma 2024 025 [facility] (Registration ), [address] [place], [address], 11/23/2024 11:08:26 PSA, serum or plasma 2023 024 [facility] (Registration ), [address] [facility], [place], [address], 11/19/2023 11:05:17 urinalysi s, dipstick 2023 024 [email or web address] [facility], [address] [facility], [address], [place], [address], 11/19/2023 09:34:51 Referral None recorded. Procedures None recorded. Surgeries None recorded. Imaging None recorded. Medication Orders oxybutyni n chloride ER 10 mg tablet,ex tended release 24 hr 2024 025 [email or web address], [address] [place] [address], [address], 11/23/2024 10:16:24 tamsulosi n 0.4 mg capsule 2024 025 [email or web address], [address] [place] [address], [address], 11/23/2024 10:16:24 oxybutyni n chloride ER 10 mg tablet,ex tended release 24 hr 2023 024 [email or web address] [email or web address], [address] [place] [address], [address], 04/23/2024 13:01:44 tamsulosi n 0.4 mg capsule 2023 024 [facility], [address] [place] [address], [address], 04/23/2024 11:55:19 oxybutyni n chloride ER 10 mg tablet,ex tended release 24 hr 2023 024 [facility][id number], [address], [id number], 01/15/2024 10:13:18 oxybutyni n chloride ER 10 mg tablet,ex tended release 24 hr 2023 024 [facility] #[id number], [address], [id number], 11/19/2023 09:49:10 Patient TargetsNo targets recorded. Patient InstructionsNo instructions recorded. Reason for Referral None Reported. Results Created Date Observation Date Name Description Value Unit Range Abnormal Flag Note LastModifiedBy Organization Detail LastModifiedTime 11/19/19 24 11/19/2023 PROST ATE SPECI FIC AG (PSA) prostate specific Ag (PSA) 1.8 NG/mL 0-4.0 Not Available [facility] [address] [facility], [place], [address], 11/19/2023 11:05:17 11/19/19 24 11/19/2023 urina lysis , dipst ick Leukocytes (reference range) negati ve Not Available [address], [place], [address], 11/19/2023 09:32:53 11/19/19 24 11/19/2023 urina lysis , dipst ick Nitrite (reference range:) negati ve Not Available [address], [place], [address], 11/19/2023 09:32:53 11/19/19 24 11/19/2023 urina lysis , dipst ick Urobilinogen (reference range) 0.2 Not Available [facility] [address], [place], [address], 11/19/2023 09:32:53 11/19/19 24 11/19/2023 urina lysis , dipst ick Protein (reference range) negati ve Not Available [address], [place], [address], 11/19/2023 09:32:53 11/19/19 24 11/19/2023 urina lysis , dipst ick pH (reference range 5-8.5) 6.0 Not Available [facility] [address], [place], [address], 11/19/2023 09:32:53 11/19/19 24 11/19/2023 urina lysis , dipst ick Blood (reference range:) non-He molyze d: Modera te Not Available [facility] [address], [place], [address], 11/19/2023 09:32:53 11/19/19 24 11/19/2023 urina lysis , dipst ick Specific [place] (reference range) 1.015 Not Available [facility] [address] [place] [address] [address], [place], [address], 11/19/2023 09:32:53 11/19/19 24 11/19/2023 urina lysis , dipst ick Ketone (reference range) negati ve Not Available [address], [place], [address], 11/19/2023 09:32:53 11/19/19 24 11/19/2023 urina lysis , dipst ick Bilirubin (reference range) negati ve Not Available [address] [address], [place], [address], 11/19/2023 09:32:53 11/19/19 24 11/19/2023 urina lysis , dipst ick Glucose (reference range) negati ve Not Available [address], [place], [address], 11/19/2023 09:32:53 11/19/19 24 11/19/2023 urina lysis , dipst ick Color (reference range: yellow-brown ) Yellow Not Available [address], [place], [address], 11/19/2023 09:32:53 11/23/19 25 11/23/2024 PROST ATE SPECI FIC AG (PSA) prostate specific Ag (PSA) 2.5 NG/mL 0-4.0 Not Available [facility] [address] [place], [address], 11/23/2024 11:08:25 Result Notes None recorded. Problems Name Problem SNOMED Code Status Onset Date Resolution Date Notes Provider Name and Address Organization Details Recorded Time Microscopic hematuria 494664051 Active 2021 Shawna Crase null, [place] - [facility] - [place] & [place] 2 10:15:26 Increased frequency of urination 191811267 Active 2021 Shawna Crase null, [place] - [facility] 2 10:15:39 Overactive urinary bladder 800102145 Active 2021 Shawna Crase null, [place] - [facility] [place] 2 10:16:05 Prostatitis 8510484 Active 2021 Shawna Crase null, [place] - [facility] - [place] & [place] 2 10:16:30 Problem Notes None recorded. Procedures Surgical History Date Name Laterality Status Provider Name and Address Organization Details Recorded Time 01/15/20 24 International Prostate Symptom Score (IPSS) completed Kayla Feldman NP, [address] [place], [address], [facility] - [facility] [place] [facility] [place] 01/15/2024 10:11:09 07/17/20 23 Cystoscopy-Male completed Alex Lipscomb MD [address] [place], [address], [facility] - NT [facility] & [place] 07/17/2023 16:07:02 12/28/19 23 Cystoscopy-Male completed Alex Lipscomb MD [address], [place], [address], [facility] - [facility] & [place] 12/27/2022 15:40:03 Imaging Results None recorded. Procedure Notes None recorded. Medical Equipment None Reported. Allergies No known drug allergies Medications Name Sig Start Date Stop Date Status Note LastModified by Organization Details LastModified Time losartan 50 mg tablet TAKE 1 TABLET BY MOUTH DAILY active Not Available Not Available No t Available Hydromet 5 mg-1.5 mg/5 mL oral solution TAKE 5 ML BY MOUTH EVERY 6 HOURS NEEDED FOR COUGH active Not Available Not Available No t Available cyclobenzap rine 10 mg tablet TAKE 1 TABLET BY MOUTH THREE TIMES DAILY FOR UP TO 10 DAYS NEEDED FOR MUSCLE SPASMS active Not Available Not Available No t Available doxycycline hyclate 100 mg capsule 09/25 completed Not Available Not Available Not Available tizanidine 2 mg tablet 09/25 completed Not Available Not Available Not Available cetirizine 10 mg tablet 09/25 completed Not Available Not Available Not Available oxybutynin chloride ER 10 mg tablet,exte nded release 24 hr TAKE 1 TABLET BY MOUTH twice a day active Not Available Not Available No t Available azithromyci n 250 mg tablet TAKE 2 TABLETS BY MOUTH FOR 1 DAY THEN TAKE 1 TABLET BY MOUTH DAILY FOR 4 DAYS 11/23 completed Not Available Not Available Not Available pravastatin 40 mg tablet TAKE 1 TABLET BY MOUTH DAILY active Not Available Not Available No t Available prednisone 20 mg tablet TAKE 2 TABLETS BY MOUTH IN THE MORNING WITH FOOD FOR 5 DAYS THEN 1 TABLET DAILY FOR 5 DAYS 01/14 completed Not Available Not Available Not Available sulfamethox azole 800 mg-trimetho prim 160 mg tablet TAKE 1 TABLET BY MOUTH TWICE DAILY 11/23 completed Not Available Not Available Not Available sildenafil 100 mg tablet TAKE 1 TABLET BY MOUTH NEEDED FOR ERECTILE DYSFUNCTI ON 01/14 completed Not Available Not Available Not Available tamsulosin 0.4 mg capsule TAKE 1 CAPSULE BY MOUTH EVERY DAY AT BEDTIME active Not Available Not Available No t Available benzonatate 100 mg capsule active Not Available Not Available Not Available omeprazole 20 mg capsule,del ayed release active Not Available Not Available Not Available methylpredn isolone 4 mg tablets in a dose pack FOLLOW PACKAGE DIRECTION S 11/23 completed Not Available Not Available Not Available hydrocodone 10 mg-chlorphe niramine 8 mg/5 mL oral susp extend.rel 12hr 09/25 completed Not Available Not Available Not Available albuterol sulfate HFA 90 mcg/actuati on aerosol inhaler INHALE 2 PUFFS BY MOUTH EVERY 4 HOURS NEEDED FOR WHEEZING OR SHORTNESS OF AIR active Not Available Not Available No t Available bromphenira mine-pseudo ephedrine-D M 2 mg-30 mg-10 mg/5 mL oral syrup TAKE 5 ML BY MOUTH FOUR TIMES DAILY NEEDED FOR CONGESTIO N OR COUGH active Not Available Not Available No t Available fluticasone propionate 50 mcg/actuati on nasal spray,suspe nsion INHALE 2 SPRAYS INTO EACH NOSTRIL ONCE DAILY active Not Available Not Available No t Available doxycycline hyclate 100 mg tablet TAKE 1 TABLET BY MOUTH TWICE DAILY active Not Available Not Available No t Available amoxicillin 875 mg-juanu m clavulanate 125 mg tablet 09/25 completed Not Available Not Available Not Available rosuvastati n 20 mg tablet TAKE 1 TABLET BY MOUTH DAILY active Not Available Not Available No t Available tadalafil 20 mg tablet (pulmonary hypertensio n) 01/14 completed Not Available Not Available Not Available Paxlovid 300 mg (150 mg x 2)-100 mg tablets in a dose pack FOLLOW PACKAGE DIRECTION S 01/14 completed Not Available Not Available Not Available Vitals Date Recorded Body height Body mass index (BMI) Body weight Body temperature Systolic And Diastolic Provider Name and Address Organization Details Last Updated DateTime 11/19/2023 177.8 cm 32.7 kg/m2 559963. 06 g 97.7 [degF] 132/70 mm[Hg] [facility] 4 09:32:28 Date Recorded Body height Body mass index (BMI) Body weight Body temperature Oxygen saturation Oxygen saturation in Arterial blood by Pulse oximetry Heart rate Systolic And Diastolic Provider Name and Address Organization Details Last Updated DateTime 5 177.8 cm 34.7 kg/m2 394457. 35 g 97.7 [degF] 100 % 100 % 70 /min 140/80 mm[Hg] [facility] 5 09:56:35 Date Recorded Body height Body mass index (BMI) Body weight Body temperature Systolic And Diastolic Provider Name and Address Organization Details Last Updated DateTime 01/15/2024 177.8 cm 32.7 kg/m2 298268. 06 g 97 [degF] 126/74 mm[Hg] [facility] & [place] 4 09:58:19 Social History None recorded. Functional Status Question Answer Note LastModified by Organizat ion Details LastModified Time Do you use any illicit or recreational drugs? No Information not available 10/15/2022 What is your level of alcohol consumption? None Information not available 10/15/2022 Mental Status None recorded. Family History Relationship Description Onset Age of this Age Resolved Age Notes LastModified by Organization Details LastModified Time Father No current problems or disability [email or web address] Not available 10/15 09:12:23 Mother No current problems or disability [email or web address] Not available 10/15 09:12:23 Medical History Condition Response Enlarged Prostate Y Past Encounters Encounter ID Performer Location Encounter Start Date Encounter Closed Date Diagnosis/Indication Diagnosis SNOMED-CT Code Diagnosis ICD10 Code Diagnosis Note [id number] Kayla Feldman NP, S [facility] [address] [place] [address],[address] [place] [address] 10/15/2022 08:57:55 10/15/2022 09:50:38 Increased frequency of urination 295270077 R35.0 Microscopic hematuria 19 3151565 R31.29 Send urine for cytology.S chedule CT scan of abdomen pelvis without and with IV contrastBU N and creatinine prior to CT scanscreen ing PSAstart patient on Flomax 0.4 mg once dailyPVR was 20 ccreturn to clinic in 4 weeks for follow-up with UA and to review diagnostic imaging test results and Flomax treatment Nocturia 821172420 R35.1 Screening for malignant neoplasm of prostate 971585798 Z12.5 Slowing of urinary stream 86998200 R39.12 [id number] Kayla Feldman NP, S [facility] [address] [place] [address],[address] [place] [address] 11/27/2022 09:10:07 11/27/2022 09:53:01 Microscopic hematuria 025991345 R31.29 CT scan, urine cytology, and PSA results reviewed and discussed with pt in clinicDisc ussed office cystoscopy to complete w/u of microscopi c hematuria. Pt agrees to move forward with thisContin ue Flomax 0.4mg dailyRTC for office cysto under local Increased frequency of urination 719170945 R35.0 Nocturia 875845492 R35.1 Erectile dysfunction 860 474137 F52.21 Large prostate 304964616 N40.0 Cyst of kidney 633158824 N28.1 [id number] Alex Lipscomb MD [facility] [address] [place] [address],[address] [place] [address] 12/27/2022 14:27:42 12/27/2022 15:41:08 Microscopic hematuria 514493354 R31.29 Increased frequency of urination 137238539 R35.0 Lesion of urinary bladder 987454325 N32.9 small, focal nonspecifi c mucosal irregulari ty on left bladder base [id number] [facility] [address] [place] [address],[address] [place] [address] 07/17/2023 14:55:05 07/17/2023 16:23:55 Microscopic hematuria 571403163 R31.29 Increased frequency of urination 418910538 R35.0 Lesion of urinary bladder 025489967 N32.9 small, focal nonspecifi c mucosal irregulari ty on left bladder base Erectile dysfunction 860 738178 F52.21 [id number] Alex Lipscomb MD [address] [place] [address] 07/29/2023 16:19:06 07/30/2023 09:21:05 Microscopic hematuria 159930104 R31.29 Increased frequency of urination 646294363 R35.0 Lesion of urinary bladder 559741219 N32.9 small, focal nonspecifi c mucosal irregulari ty on left bladder base Erectile dysfunction 860 555566 F52.21 Induration penis plastica 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 Peyronie's disease, mild [id number] Alex Lipscomb MD [facility] [address] [place] [address],[address] [place] [address] 09/02/2023 16:30:52 09/02/2023 17:02:08 Microscopic hematuria 537960000 R31.29 Increased frequency of urination 809171768 R35.0 Lesion of urinary bladder 829700609 N32.9 small, focal nonspecifi c mucosal irregulari ty on left bladder base Erectile dysfunction 860 054253 F52.21 Induration penis plastica 7204980 N48.6 Peyronie's disease, mild [id number] Kayla Feldman NP, S [facility] [address] [place] [address],[address] [place] [address] 11/19/2023 09:17:10 11/19/2023 09:53:01 Microscopic hematuria 883127374 R31.29 Continue triple mix 25 units as needed.Sta rt oxybutynin 10 mg daily related to urinary urgency / frequency. Possible side effects discussed with patient in clinic today.Cont inue tamsulosin 0.4 mg dailyretur n to clinic in 8 weeks for follow-up Increased frequency of urination 452079614 R35.0 Lesion of urinary bladder 618043647 N32.9 Erectile dysfunction 860 637878 F52.21 Induration penis plastica 0875828 N48.6 Screening for malignant neoplasm of prostate 900063301 Z12.5 [id number] Kayla Feldman NP, S [facility] [address] [address] 01/15/2024 09:37:04 01/15/2024 10:08:49 Microscopic hematuria 936260110 R31.29 pt voided prior to appointmen t Increased frequency of urination 046614254 R35.0 IPSS score 14Will increase Oxybutynin to twice a day.Contin ue Tamsulosin 0.4mg dialyConti nue Triple Mix 25 units as neededRTC in 3 months for f/u Lesion of urinary bladder 218922655 N32.9 Erectile dysfunction 860 693311 F52.21 Induration penis plastica 4753086 N48.6 [id number] Kayla Feldman NP, S [facility]-[address] [facility] [address] [place] [address] 04/23/2024 10:25:21 04/23/2024 11:50:06 Increased frequency of urination 814672901 R35.0 Continue Oxybutynin 10mg twice a day.Contin ue Tamsulosin 0.4mg dialyConti nue Triple Mix 25 units as neededRTC in 6 months for f/u. Will need Screening PSA at this time Microscopic hematuria 19 4603964 R31.29 pt voided prior to appointmen t Overactive urinary bladder 791800417 N32.81 [id number] Kayla Feldman NP, S [facility]-[address] [facility] [address] [place] [address] 11/23/2024 09:07:18 11/23/2024 10:07:48 Increased frequency of urination 178902762 R35.0 Continue Oxybutynin 10mg twice a day.RTC in 1 year for f/u. Will need Screening PSA at this time Microscopic hematuria 19 7111396 R31.29 history of Screening for malignant neoplasm of prostate 490484180 Z12.5 Screening pSA order provided to pt to have performed. Will call pt with results Erectile dysfunction 860 193889 F52.21 Continue Triple Mix 25 units as needed. Refills called into [facility] Slowing of urinary stream 73362987 R39.12 Continue Tamsulosin 0.4mg daily Health Concerns Section Related Observation LastModified by Organization Detai ls LastModified Time None Recorded Concern Status LastModified by Organization Details LastModified Time None Recorded Advance Directives Directive None Recorded Payers Insurance Date Sequence Insurance Name Policy Number Policy [place] Covered Member ID [place] Member ID Guarantor Name 11/23/2024 2 FOR LIFE () Julio Cheng Colin [id number] Julio Shaw 11/23/2024 1 [place] Julio Skylar Colin [id number] Julio Shaw 11/23/2024 1 [facility] () [id number] Julio Arianirvin Shaw [id number] Julio Shaw Notes Date Note Type Note Provider Name and Address Organization Details Recorded Time 09/02/2023 text/html Telephone consultation conducted today with patient with 100% of consult devoted to counseling patient, reviewing records and implementing management plan going forward. The patient gives his consent proceed with consultation. The consultation lasts from 4:32 p.m. to 4:35 p.m. patient has erectile dysfunction and was recently started on triple mix ICI. His perform the injections. He is done well with injections but at 20 units he feels he could benefit from a potentially slightly higher dosage. He is had no side effects and no propensity to priapism. See Below past medical history:The patient comes in today along with his for follow-up of chronic microscopic hematuria and a subtle mucosal abnormality noted on previous cystoscopy. This is very nonspecific and a urine cytology was obtained to rule out malignancy and was negative. Patient is also here today for a test dose of triple mix to treat refractory ED that has not responded to both Viagra and Cialis.See Below past medical history:patient returns to clinic today with a history of chronic microscopic hematuria and a subtle mucosal abnormality that was noted on previous cystoscopy posterior and medial to the left ureteral orifice. The patient has had no gross hematuria no new lower urinary tract symptoms. He is having no pain or discomfort. He continues to suffer from erectile dysfunction has failed both Viagra and Cialis.See Below past medical history:Patient returns to clinic today with a history of chronic microscopic hematuria. He is here today for cystoscopy to complete his hematuria evaluation. A recent CT scan did show some mesenteric lymphadenopathy with lymph nodes measuring up to 1 cm. This finding along with prostate enlargement and simple renal cysts. Patient has noted no gross hematuria or lower urinary tract symptoms of concern.Past Hx:{67 yowm RTC for f/u of microscopic hematuria. Urine cytology was negative for malignant cells on 10/15/2022. PSA was 1.5 on 10/15/2022. CT scan of abd/pelvis without and with contrast on 10/26/2022 revealed a 3cm right renal cyst. There is a second 1.7cm right renal cyst. A 1.3 cm left renal cyst. Prostate is enlarged measuring up to 5cm. There is nonspecific misting of the mesentery with mesenteric lymph nodes measuring up to 1cm, these are nonspecific. At last visit on 10/15/2022, pt was started on Flomax 0.4 mg once daily r/t weak urinary stream States the medication has helped flow and has decreased his nocturia from 3 times per night to 1. Denies any overt SEs from the medication. Denies any dysuria or gross hematuria. States through the day he still experiences some urinary urgency/frequency. PVR at last visit was 20cc.Previous : [66 yowm presents to clinic for evaluation of microscopic hematuria, weak urinary stream, urinary urgency / frequency. Patient's PCP is Dr. Newell. Patient reports microscopic hematuria was noted on urinalysis at routine visit. Patient reports he has never seen blood in his urine. Patient reports he is a former smoker, quit 9 years ago, smoked for approximately 30 years, smoked 1-1/2 pack a day. He denies any family history of any malignancy. Patient reports urinary stream is weak, has postvoid dribbling. Reports he has urinary urgency/ frequency that has been ongoing for 4-6 months. States he urinates at least 2 times every hour. Reports PCP placed him on some Bactrim and Myrbetriq. Reports the Myrbetriq did help with his nocturia, reports prior was for now wants to however he is not taking this medication anymore. He denies any dysuria or gross hematuria. Denies any history of UTIs, kidney stones, diabetes or glaucoma. States he is not had a PSA.Additionally, patient reports he has been experiencing erectile dysfunction. Patient reports he has trialed sildenafil 100 mg as needed and tadalafil 20 mg as needed. Reports medications work occasionally.] Alex Lipscomb MD [address], [place], [address], [facility] 09/03/2023 13:28:37 11/19/2023 text/html 68 yowm RTC for f/u of microscopic hematuria, ED, and Urinary urgency/frequency. Patient had a urine cytology on 07/17/[address] scan of abdomen pelvis without and with IV contrast on 10/26/2022 revealed a 3 cm right renal cyst. There was a 2nd 1.7 cm right renal cyst and a 1.3 cm left renal cyst. Prostate was enlarged measuring up to 5 cm. Patient had a cystoscopy that revealed a subtle mucosal abnormality that is nonspecific. Patient's ED is managed with triple mix 25 units. Patient reports he has had good effectiveness. Patient has failed both Viagra and Cialis in the past. Patient reports urinary stream is good, on tamsulosin 0.4 mg daily. Nocturia times 1-2. Patient reports he has been experiencing increasing urinary urgency/ frequency through the day. Reports he goes at least every 1-2 hours. Reports he drinks 3 cups of coffee in bowels move regularly. He denies any dysuria or gross hematuria. Denies any history of glaucoma. has not had a recent PSA. Last PSA was 1.5 on 10/15/2022. Kayla Feldman NP, [address], [place], [address], [facility] 11/19/2023 09:52:16 01/15/2024 text/html 68 yowm RTC for 8 week f/u of urinary urgency/frequency. At last visit on 11/19/2023, pt was started on Oxybutynin 10mg daily. States the medication has helped approx 30%. Denies any overt SEs from the medication.Pt also has a h/o microscopic hematuria and ED. Patient had a urine cytology on 07/17/[address] scan of abdomen pelvis without and with IV contrast on 10/26/2022 revealed a 3 cm right renal cyst. There was a 2nd 1.7 cm right renal cyst and a 1.3 cm left renal cyst. Prostate was enlarged measuring up to 5 cm. Patient had a cystoscopy that revealed a subtle mucosal abnormality that is nonspecific. Patient's ED is managed with triple mix 25 units. Patient reports he has had good effectiveness. Patient has failed both Viagra and Cialis in the past. Patient reports urinary stream is good, on tamsulosin 0.4 mg daily. Nocturia times 1-2. He denies any dysuria or gross hematuria. Recent PSA was 1.8 on 11/19/2023. Previous PSAs: 1.5 on 10/15/2022 Kayla Feldman NP, S [address] [facility], [place], [address], [facility] - [place] & [place] 01/15/2024 10:14:01 04/23/2024 text/html 68 yowm RTC for 3 month f/u of urinary urgency/frequency. Patient is managed with oxybutynin 10 mg b.i.d.. Patient reports medication is effective. Denies any overt SEs from the medication.Pt also has a h/o microscopic hematuria and ED. Patient had a urine cytology on 07/17/[address] scan of abdomen pelvis without and with IV contrast on 10/26/2022 revealed a 3 cm right renal cyst. There was a 2nd 1.7 cm right renal cyst and a 1.3 cm left renal cyst. Prostate was enlarged measuring up to 5 cm. Patient had a cystoscopy that revealed a subtle mucosal abnormality that is nonspecific. Patient's ED is managed with triple mix 25 units. Patient reports he has had good effectiveness. Patient has failed both Viagra and Cialis in the past. Patient reports urinary stream is good, on tamsulosin 0.4 mg daily. Nocturia x0-1. He denies any dysuria or gross hematuria. Recent PSA was 1.8 on 11/19/2023. Previous IPSS score 14. Previous PSAs: 1.5 on 10/15/2022 Kayla Feldman, [employer], [address] [facility], [place], [address], [facility] & [place] 04/23/2024 11:55:37 11/23/2024 text/html 11/23/2024 69 yowm RTC for 6 month f/u. Pt with urinary urgency/frequnecy managed with Oxybutynin 10mg bid. States medication is effective without any overt SEs. Urinary stream good, on Tamsulosin 0.4mg daily. Nocturia 1-2. Denies any dysuria or gross hematuria. ED is managed with with triple mix 25 units. States medication is effective without any overt SEs. Has not had a recent PSA. 04/23/2024 68 yowm RTC for 3 month f/u of urinary urgency/frequency. Patient is managed with oxybutynin 10 mg b.i.d.. Patient reports medication is effective. Denies any overt SEs from the medication.Pt also has a h/o microscopic hematuria and ED. Patient had a urine cytology on 07/17/[address] scan of abdomen pelvis without and with IV contrast on 10/26/2022 revealed a 3 cm right renal cyst. There was a 2nd 1.7 cm right renal cyst and a 1.3 cm left renal cyst. Prostate was enlarged measuring up to 5 cm. Patient had a cystoscopy that revealed a subtle mucosal abnormality that is nonspecific. Patient's ED is managed with triple mix 25 units. Patient reports he has had good effectiveness. Patient has failed both Viagra and Cialis in the past. Patient reports urinary stream is good, on tamsulosin 0.4 mg daily. Nocturia x0-1. He denies any dysuria or gross hematuria. Recent PSA was 1.8 on 11/19/2023. Previous IPSS score 14. Previous PSAs: 1.8 on 11/19/2023, 1.5 on 10/15/2022 Kayla Feldman NP, [address], [place], [address], [facility] - [place] & [place] 11/23/2024 11:13:49
--- NOTE | 2025-03-02 14:47 | XR_ITS ---
FINAL REPORT CLINICAL HISTORY: PAIN right knee pain COMPARISON: None FINDINGS: RIGHT KNEE 3 views of the right knee were obtained. There is no acute fracture or dislocation. Visualized joint spaces are normally aligned. Small osteophytes are noted on the inner surface of the patella. A trace joint effusion is present. Soft tissues are unremarkable. IMPRESSION: Mild degenerative change with a trace joint effusion. Reviewed, Interpreted and Dictated by Jose G Nino MD Transcribed by Oralia Bhandari Authenticated and [facility]
== END 2025-03-02 23:59 | disposition home or self-care (01) ==
LOC: RAD 14:42
PROVIDERS: PCP Family Medicine; Visit Provider Family Medicine
DX: M17.11 Unilateral primary osteoarthritis, right knee (principal)
CPT/HCPCS: 73562